=== PATIENT | male | born 1970 | race Hispanic/Latino ===

== ENCOUNTER 2020-12-23 11:00 | Inpatient (IN) | payer BC ==
[~2020-12-23] VITALS: Ht 167.6 cm; Wt 81.6 kg
[2020-12-23 09:41] LABS: BASOPHILS % (AUTO) 0.5 % (0.0-5.0); EOSINOPHILS % (AUTO) 1.4 % (0.0-8.0); HEMATOCRIT 45.3 % (42-54); LYMPHOCYTES % (AUTO) 38.8 % (21.0-51.0); MEAN CORPUSCULAR HEMOGLOBIN 31.6 pg (27.0-33.0); MEAN CORPUSCULAR HGB CONC 34.2 g/dL (32.0-36.0); MEAN CORPUSCULAR VOLUME 92.3 fL (79-99); MONOCYTES % (AUTO) 13.3 % (3.0-13.0); NEUTROPHILS % (AUTO) 45.7 % (40.0-77.0); PLATELET COUNT (AUTO) 170 K/uL (130-400); RED BLOOD CELL COUNT(AUTO) 4.91 MIL/uL (4.50-6.20); RED CELL DISTRIBUTION WIDTH 13.2 % (11.0-15.5); WHITE BLOOD COUNT (AUTO) 6.5 K/uL (4.8-10.8)
[2020-12-23 09:45] LABS: APPEARANCE,URINE Clear (CLEAR); BILIRUBIN,URINE Negative (NEGATIVE); COLOR,URINE Yellow (YELLOW); GLUCOSE, URINE (UA) Negative (NEGATIVE); KETONES,URINE Negative (NEGATIVE); LEUKOCYTE ESTERASE ,URINE Negative (NEGATIVE); NITRATE,URINE Negative (NEGATIVE); OCCULT BLOOD,URINE Negative (NEGATIVE); PH,URINE 6.5 (5.0-8.0); PROTEIN,URINE Negative (NEGATIVE)
[2020-12-23 09:52] LABS: PROTHROMBIN TIME 10.9 SEC (9.6-11.6)
[2020-12-23 09:59] LABS: CREATININE 1.1 mg/dL (0.5-1.5); POTASSIUM 4.2 mmol/L (3.5-5.1)
[2020-12-24 13:19] VITALS: BP 164/91
[2020-12-24] MEDS ORDERED: SIMV10TA97 PO (13:32)
[2020-12-24] MEDS ORDERED: IBUP-2077 PO (13:33)
[2020-12-27] VITALS (25 sets, daily range): BP systolic 101–171; BP diastolic 63–97
[2020-12-27] MEDS: CEFAZOLIN SODIUM 1 GM VIAL IVP ONE ×2 (09:41→13:50)
[2020-12-27] MEDS: CEFAZOLIN SODIUM 1 GM VIAL ONE ×2 (09:41→15:20)
[2020-12-27] MEDS ORDERED: DEXAMETHASONE SOD PHOSPHATE 10MG/ML 1ML VIAL ONE (11:17)
[2020-12-27] MEDS ORDERED: SUCCINYLCHOLINE CHLORIDE 20 MG/ML 10 ML VIAL ONE (11:17)
[2020-12-27] MEDS ORDERED: LIDOCAINE PF 2% 5ML ABBOJECT ONE (11:17)
[2020-12-27] MEDS ORDERED: PROPOFOL 10 MG/ML 20ML VIAL IV ONE (11:18)
[2020-12-27] MEDS ORDERED: ROCURONIUM 10MG/1ML SYR 10 MG/ML ML ONE ×2 (11:18→14:20)
[2020-12-27] MEDS ORDERED: NEOSTIGMINE 5MG/5ML SYR IV ONE (11:18)
[2020-12-27] MEDS ORDERED: ONDANSETRON HCL 4 MG/2 ML VIAL ONE (11:18)
[2020-12-27] MEDS ORDERED: MIDAZOLAM HCL 1 MG/ML 2ML VIAL ONE (11:18)
[2020-12-27] MEDS ORDERED: GLYCOPYRROLATE 1 MG/5 ML SYRINGE ONE (11:18)
[2020-12-27] MEDS ORDERED: FENTANYL CITRATE PF 50 MCG/1 ML 2ML VIAL ONE ×3 (11:18→15:01)
[2020-12-27] MEDS ORDERED: ALBUMIN (HUMAN) 5% 250 ML IV ONE (11:48)
[2020-12-27] MEDS ORDERED: CEFAZOLIN SODIUM 1 GM VIAL ONE (12:33)
[2020-12-27] MEDS ORDERED: TRANEXAMIC ACID 1000MG/10ML ONE ×2 (12:33→17:05)
[2020-12-27] MEDS ORDERED: LIDOCAINE HCL-MPF 1% 2ML VIAL IV PRN (16:45)
[2020-12-27] MEDS ORDERED: POTASSIUM CHLORIDE 10% ELIXIR 20 MEQ/15 ML UDCUP PO PRN (16:45)
[2020-12-27] MEDS ORDERED: TEMAZEPAM 15 MG CAPSULE PO PRN (16:45)
[2020-12-27] MEDS: SODIUM CHLORIDE 0.9% 1000ML 1,000 ML IV SCH (16:45)
[2020-12-27] MEDS ORDERED: ONDANSETRON HCL 4 MG/2 ML VIAL IVP PRN (16:45)
[2020-12-27] MEDS ORDERED: CALCIUM CARBONATE 500 MG TABLET PO PRN (16:45)
[2020-12-27] MEDS ORDERED: TRAMADOL HCL 50 MG TABLET PO PRN (16:45)
[2020-12-27] MEDS ORDERED: FERROUS FUMARATE 324 MG TABLET PO PRN (16:45)
[2020-12-27] MEDS ORDERED: DiphenhydrAMINE HCL 50 MG/ML VIAL IVP PRN (16:45)
[2020-12-27] MEDS: ACETAMINOPHEN EXTRA STRENGTH 500 MG TABLET PO SCH ×2 (16:45→23:36)
[2020-12-27] MEDS ORDERED: POTASSIUM CHLORIDE 20 MEQ ERTAB PO PRN (16:45)
[2020-12-27] MEDS ORDERED: POTASSIUM CHLORIDE 20MEQ/100ML 100 ML IV PRN (16:45)
[2020-12-27] MEDS ORDERED: MEPERIDINE-PF 25 MG/ML SYG ONE ×2 (17:05→17:19)
[2020-12-27] MEDS ORDERED: LABETALOL HCL 5 MG/ML 20ML VIAL IV ONE (17:31)
[2020-12-27] MEDS: CELECOXIB 200 MG CAP PO SCH (19:57)
[2020-12-27] MEDS: FAMOTIDINE 20MG TAB 20 MG TAB PO SCH (19:57)
[2020-12-27] MEDS: PREGABALIN 25 MG CAP PO SCH (19:57)
[2020-12-27] MEDS: SIMVASTATIN 10 MG TABLET PO SCH (19:57)
[2020-12-27] MEDS: ASPIRIN 81MG TAB.CHEW PO SCH (19:58)
[2020-12-27] MEDS: OXYCODONE HCL 5 MG TAB PO PRN (19:59)
[2020-12-27] MEDS: CEFAZOLIN SODIUM 1 GM VIAL IVP SCH (23:35)
[2020-12-28 04:13] VITALS: BP 113/73
[2020-12-28 04:18] LABS: HEMATOCRIT 36.2 % (42-54); MEAN CORPUSCULAR HGB CONC 34.3 g/dL (32.0-36.0); MEAN CORPUSCULAR VOLUME 90.5 fL (79-99); RED CELL DISTRIBUTION WIDTH 13.2 % (11.0-15.5); WHITE BLOOD COUNT (AUTO) 13.5 K/uL (4.8-10.8)
[2020-12-28 04:35] LABS: CREATININE 1.4 mg/dL (0.5-1.5); POTASSIUM 4.2 mmol/L (3.5-5.1)
[2020-12-28] MEDS: SODIUM CHLORIDE 0.9% 1000ML 1,000 ML IV SCH ×2 (05:57→12:38)
[2020-12-28] MEDS: CEFAZOLIN SODIUM 1 GM VIAL IVP SCH (05:58)
[2020-12-28] MEDS: KETOROLAC TROMETHAMINE 15MG/ML IV PRN ×2 (06:13→12:37)
[2020-12-28] MEDS: TAMSULOSIN HCL 0.4 MG CAP.ER.24H PO SCH (09:40)
[2020-12-28] MEDS: PREGABALIN 25 MG CAP PO SCH ×2 (09:40→21:00)
[2020-12-28] MEDS: ASPIRIN 81MG TAB.CHEW PO SCH ×2 (09:40→21:00)
[2020-12-28] MEDS: POLYETHYLENE GLYCOL 3350 17 GM POWD.PACK PO SCH (09:40)
[2020-12-28] MEDS: CELECOXIB 200 MG CAP PO SCH ×2 (09:41→21:00)
[2020-12-28] MEDS: FAMOTIDINE 20MG TAB 20 MG TAB PO SCH ×2 (09:41→21:00)
[2020-12-28] MEDS: ACETAMINOPHEN EXTRA STRENGTH 500 MG TABLET PO SCH ×2 (09:41→16:57)
[2020-12-28 11:42] VITALS: BP 125/82
[2020-12-28] MEDS: OXYCODONE HCL 5 MG TAB PO PRN ×2 (12:47→17:11)
[2020-12-28 17:12] VITALS: BP 113/72
[2020-12-28 20:04] VITALS: BP 112/78
[2020-12-28] MEDS: SIMVASTATIN 10 MG TABLET PO SCH (21:00)
[2020-12-28 23:30] VITALS: BP 112/77
[2020-12-29] MEDS: ACETAMINOPHEN EXTRA STRENGTH 500 MG TABLET PO SCH ×3 (00:45→17:17)
[2020-12-29 03:50] VITALS: BP 111/81
[2020-12-29 08:00] VITALS: BP 141/90
[2020-12-29] MEDS: CELECOXIB 200 MG CAP PO SCH (08:19)
[2020-12-29] MEDS: PREGABALIN 25 MG CAP PO SCH (08:19)
[2020-12-29] MEDS: POLYETHYLENE GLYCOL 3350 17 GM POWD.PACK PO SCH (08:19)
[2020-12-29] MEDS: OXYCODONE HCL 5 MG TAB PO PRN ×3 (08:19→17:18)
[2020-12-29] MEDS: ASPIRIN 81MG TAB.CHEW PO SCH (08:20)
[2020-12-29] MEDS: TAMSULOSIN HCL 0.4 MG CAP.ER.24H PO SCH (08:20)
[2020-12-29] MEDS: FAMOTIDINE 20MG TAB 20 MG TAB PO SCH (08:20)
[2020-12-29 12:00] VITALS: BP 116/75
[2020-12-29 16:00] VITALS: BP 126/81
[2020-12-29] MEDS ORDERED: ASPI-1005 PO (18:49)
[2020-12-29] MEDS ORDERED: HYDR-4060 PO (18:49)
[2020-12-30] MEDS ORDERED: BISACODYL 10 MG SUPP.RECT RC PRN (16:45)
== END 2020-12-29 20:05 | disposition home health service (06) | DRG 470 ==
LOC: DAHIP 12-27 07:02 → 4AH 12-27 17:41
PROVIDERS: ADMIT Orthopaedic Surgery; ATTEND Orthopaedic Surgery
PROC: 0SRB0JZ Replacement of Left Hip Joint with Synthetic Substitute, Open Approach (ICD-10-PCS; principal; 2020-12-27 13:25)
PROC: 3E0T3BZ Introduction of Anesthetic Agent into Peripheral Nerves and Plexi, Percutaneous Approach (ICD-10-PCS; 2020-12-27 13:25)
DX: M87.9 Osteonecrosis, unspecified (principal); G89.29 Other chronic pain; D64.9 Anemia, unspecified; Z20.822 Contact with and (suspected) exposure to COVID-19; Z88.8 Allergy status to other drugs, medicaments and biological substances; M19.90 Unspecified osteoarthritis, unspecified site
CPT/HCPCS: 36415; 73503; 80048; 81003; 85025; 85027; 85610; 87088; 87641; 97039; C1776; G0378; J0330; J0690; J1100; J1200; J1885; J2001; J2175; J2250; J2405; J2704; J2710; J3010; J3490; J7120; P9045; U0003

== ENCOUNTER 2022-02-27 14:00 | Inpatient (IN) | payer BC ==
[~2022-02-27] VITALS: Ht 175.3 cm; Wt 86.1 kg
[2022-02-27 10:00] VITALS: BP_SYST 155; BP_SYST 184; BP_DIAS 107; BP_DIAS 97
[2022-02-27 10:07] LABS: BASOPHILS % (AUTO) 0.5 % (0.0-5.0); EOSINOPHILS % (AUTO) 0.6 % (0.0-8.0); HEMATOCRIT 46.9 % (42-54); LYMPHOCYTES % (AUTO) 35.8 % (21.0-51.0); MEAN CORPUSCULAR HEMOGLOBIN 31.3 pg (27.0-33.0); MEAN CORPUSCULAR HGB CONC 34.8 g/dL (32.0-36.0); MEAN CORPUSCULAR VOLUME 90.2 fL (79-99); MONOCYTES % (AUTO) 13.7 % (3.0-13.0); NEUTROPHILS % (AUTO) 49.1 % (40.0-77.0); PLATELET COUNT (AUTO) 194 K/uL (130-400); RED CELL DISTRIBUTION WIDTH 13.7 % (11.0-15.5); WHITE BLOOD COUNT (AUTO) 8.8 K/uL (4.8-10.8)
[2022-02-27 10:20] LABS: CREATININE 1.1 mg/dL (0.5-1.5); POTASSIUM 4.3 mmol/L (3.5-5.1)
[2022-02-27 10:26] LABS: INR 0.93 (0.85-1.15); PROTHROMBIN TIME 10.2 SEC (9.6-11.6)
[2022-02-27 10:31] LABS: APPEARANCE,URINE Clear (CLEAR); BILIRUBIN,URINE Negative (NEGATIVE); COLOR,URINE Yellow (YELLOW); GLUCOSE, URINE (UA) Negative (NEGATIVE); KETONES,URINE Negative (NEGATIVE); LEUKOCYTE ESTERASE ,URINE Negative (NEGATIVE); NITRATE,URINE Negative (NEGATIVE); OCCULT BLOOD,URINE Negative (NEGATIVE); PROTEIN,URINE Trace mg/dL (NEGATIVE); UROBILINOGEN,URINE 0.2 mg/dL (0.2-1.0)
[2022-02-27 10:39] LABS: BACTERIA,URINE Rare /HPF (None Seen); RBC,URINE 0-1 /HPF (0-1); SQUAMOUS EPITHELIAL CELL,UR Rare /HPF (0-2); WBC,URINE 0-1 /HPF (0-1)
[~2022-02-27 14:00] MED LIST: SIMV10TA97 PO
[2022-03-01] VITALS (23 sets, daily range): BP systolic 116–154; BP diastolic 81–103
[2022-03-01] MEDS ORDERED: CEFAZOLIN SODIUM 1 GM VIAL IVP SCH (05:00)
[2022-03-01] MEDS ORDERED: LACTATED RINGERS 1000ML 1,000 ML IV ONE (12:48)
[2022-03-01] MEDS ORDERED: CEFAZOLIN SODIUM 2 GM VIAL IV ONE ×2 (15:20)
[2022-03-01] MEDS ORDERED: PROPOFOL 10 MG/ML 20ML VIAL IV ONE (15:29)
[2022-03-01] MEDS ORDERED: SUCCINYLCHOLINE CHLORIDE 20 MG/ML 10 ML VIAL ONE (15:29)
[2022-03-01] MEDS ORDERED: ROCURONIUM 10MG/1ML SYR 10 MG/ML ML ONE ×2 (15:30→17:16)
[2022-03-01] MEDS ORDERED: MIDAZOLAM HCL 1 MG/ML 2ML VIAL ONE (15:30)
[2022-03-01] MEDS ORDERED: FENTANYL CITRATE PF 50 MCG/1 ML 2ML VIAL ONE (15:30)
[2022-03-01] MEDS ORDERED: CEFAZOLIN SODIUM 1 GM VIAL ONE (15:32)
[2022-03-01] MEDS ORDERED: TRANEXAMIC ACID 1000MG/10ML ONE ×2 (15:32→20:48)
[2022-03-01] MEDS ORDERED: ROPIVACAINE 0.5% 5MG/ML 30ML IJ ONE (15:42)
[2022-03-01] MEDS ORDERED: DEXAMETHASONE SOD PHOSPHATE 10MG/ML 1ML VIAL ONE (15:44)
[2022-03-01] MEDS ORDERED: PHENYLEPHRINE HCL 10 MG/ML 1ML VIAL IV ONE (16:09)
[2022-03-01] MEDS ORDERED: EPHEDRINE SULFATE 50 MG/ML AMPULE ONE (16:40)
[2022-03-01] MEDS ORDERED: KCL 20 MEQ ERTAB PO PRN (18:30)
[2022-03-01] MEDS: ACETAMINOPHEN 500 MG TABLET PO SCH (18:30)
[2022-03-01] MEDS ORDERED: KETOROLAC 15MG/ML VIAL (15MG/ML) IV PRN (18:30)
[2022-03-01] MEDS ORDERED: LIDOCAINE HCL-MPF 1% 2ML VIAL IV PRN (18:30)
[2022-03-01] MEDS ORDERED: ONDANSETRON 4MG INJ IVP PRN (18:30)
[2022-03-01] MEDS ORDERED: OXYCODONE HCL 5 MG TAB PO PRN (18:30)
[2022-03-01] MEDS: 0.9%NACL 1000ML 1,000 ML IV SCH (18:30)
[2022-03-01] MEDS ORDERED: TRAMADOL HCL 50 MG TABLET PO PRN (18:30)
[2022-03-01] MEDS ORDERED: FERROUS FUMARATE 324 MG TABLET PO PRN (18:30)
[2022-03-01] MEDS ORDERED: DiphenhydrAMINE HCL 50 MG/ML VIAL IVP PRN (18:30)
[2022-03-01] MEDS ORDERED: CALCIUM CARB 500MG PO PRN (18:30)
[2022-03-01] MEDS ORDERED: POTASSIUM CHLORIDE 10% ELIXIR 20 MEQ/15 ML UDCUP PO PRN (18:30)
[2022-03-01] MEDS ORDERED: POTASSIUM CHLORIDE 20MEQ/100ML 100 ML IV PRN (18:30)
[2022-03-01] MEDS ORDERED: GLYCOPYRROLATE 1 MG/5 ML SYRINGE ONE (19:07)
[2022-03-01] MEDS ORDERED: NEOSTIGMINE 5MG/5ML SYR IV ONE (19:08)
[2022-03-01] MEDS ORDERED: ESMOLOL HCL 10 MG/ML 10 ML VIAL ONE (19:13)
[2022-03-01] MEDS ORDERED: KETOROLAC 30MG VIAL (30MG/ML) ONE (19:39)
[2022-03-01] MEDS ORDERED: MEPERIDINE-PF 25 MG/ML SYG ONE ×2 (19:39→20:03)
[2022-03-01] MEDS ORDERED: LABETALOL 20MG SYG IV ONE (20:12)
[2022-03-01] MEDS ORDERED: LABETALOL 20MG VIAL IV PRN (21:00)
[2022-03-01] MEDS ORDERED: LABETALOL 20MG SYG IV PRN (21:00)
[2022-03-01] MEDS ORDERED: LISINOPRIL 10 MG TABLET ONE (21:40)
[2022-03-01] MEDS: FAMOTIDINE 20MG TAB PO SCH (21:43)
[2022-03-01] MEDS: ASPIRIN 81 MG EC TAB PO SCH (21:44)
[2022-03-01] MEDS: CELECOXIB 200 MG CAP PO SCH (21:44)
[2022-03-01] MEDS: PREGABALIN 25 MG CAP PO SCH (21:45)
[2022-03-01] MEDS: OXYCODONE HCL 5 MG TAB PO PRN (21:47)
[2022-03-01] MEDS: CEFAZOLIN SODIUM 1 GM VIAL IVP SCH (23:30)
[2022-03-02] VITALS (9 sets, daily range): BP systolic 106–124; BP diastolic 63–81
[2022-03-02] MEDS: ACETAMINOPHEN 500 MG TABLET PO SCH ×3 (03:01→20:31)
[2022-03-02] MEDS: 0.9%NACL 1000ML 1,000 ML IV SCH ×2 (04:30→14:30)
[2022-03-02 06:02] LABS: HEMATOCRIT 38.7 % (42-54); MEAN CORPUSCULAR HEMOGLOBIN 31.7 pg (27.0-33.0); MEAN CORPUSCULAR HGB CONC 34.9 g/dL (32.0-36.0); MEAN CORPUSCULAR VOLUME 90.8 fL (79-99); RED BLOOD CELL COUNT(AUTO) 4.26 MIL/uL (4.50-6.20); RED CELL DISTRIBUTION WIDTH 13.5 % (11.0-15.5); WHITE BLOOD COUNT (AUTO) 13.8 K/uL (4.8-10.8)
[2022-03-02 06:25] LABS: CREATININE 1.3 mg/dL (0.5-1.5); POTASSIUM 4.2 mmol/L (3.5-5.1)
[2022-03-02] MEDS: CEFAZOLIN SODIUM 1 GM VIAL IVP SCH (06:38)
[2022-03-02] MEDS: POLYETHYLENE GLYCOL 3350 17 GM POWD.PACK PO SCH (08:13)
[2022-03-02] MEDS: FAMOTIDINE 20MG TAB PO SCH ×2 (08:13→20:30)
[2022-03-02] MEDS: CELECOXIB 200 MG CAP PO SCH ×2 (08:14→20:30)
[2022-03-02] MEDS: PREGABALIN 25 MG CAP PO SCH ×2 (08:14→20:30)
[2022-03-02] MEDS: OXYCODONE HCL 5 MG TAB PO PRN (08:14)
[2022-03-02] MEDS: ASPIRIN 81 MG EC TAB PO SCH ×2 (08:14→20:30)
[2022-03-02] MEDS: LISINOPRIL 10 MG TABLET PO SCH (08:15)
[2022-03-02] MEDS: TAMSULOSIN HCL 0.4 MG CAP.ER.24H PO SCH (08:21)
[2022-03-02] MEDS ORDERED: SIMVASTATIN 10 MG TABLET PO SCH (21:00)
[2022-03-03 04:37] VITALS: BP 130/70
[2022-03-03] MEDS: ACETAMINOPHEN 500 MG TABLET PO SCH (05:19)
[2022-03-03] MEDS: PREGABALIN 25 MG CAP PO SCH (07:46)
[2022-03-03] MEDS: OXYCODONE HCL 5 MG TAB PO PRN (07:46)
[2022-03-03] MEDS: POLYETHYLENE GLYCOL 3350 17 GM POWD.PACK PO SCH (07:46)
[2022-03-03] MEDS: ASPIRIN 81 MG EC TAB PO SCH (07:46)
[2022-03-03] MEDS: FAMOTIDINE 20MG TAB PO SCH (07:46)
[2022-03-03] MEDS: CELECOXIB 200 MG CAP PO SCH (07:47)
[2022-03-03] MEDS: TAMSULOSIN HCL 0.4 MG CAP.ER.24H PO SCH (07:47)
[2022-03-03 08:00] VITALS: BP 113/72
[2022-03-03] MEDS: LISINOPRIL 10 MG TABLET PO SCH (09:00)
[2022-03-03 11:45] VITALS: BP 131/72
[2022-03-03] MEDS ORDERED: HYDR-4060 PO (14:22)
[2022-03-03] MEDS ORDERED: MELO-106 PO (14:22)
[2022-03-03] MEDS ORDERED: AEC81 PO (14:22)
[2022-03-04] MEDS ORDERED: BISACODYL 10 MG SUPP.RECT RC PRN (18:30)
== END 2022-03-03 17:47 | disposition home health service (06) | DRG 470 ==
LOC: DAHIP 03-01 11:17 → 4BH 03-01 20:06
PROVIDERS: ADMIT Orthopaedic Surgery; ATTEND Orthopaedic Surgery
PROC: 3E0T3BZ Introduction of Anesthetic Agent into Peripheral Nerves and Plexi, Percutaneous Approach (ICD-10-PCS; 2022-03-01)
PROC: 0SR90JZ Replacement of Right Hip Joint with Synthetic Substitute, Open Approach (ICD-10-PCS; principal; 2022-03-01 16:54)
DX: M87.851 Other osteonecrosis, right femur (principal); E78.5 Hyperlipidemia, unspecified; I10 Essential (primary) hypertension; E78.00 Pure hypercholesterolemia, unspecified; D64.9 Anemia, unspecified; Z83.3 Family history of diabetes mellitus; Z82.49 Family history of ischemic heart disease and other diseases of the circulatory system; M16.11 Unilateral primary osteoarthritis, right hip
CPT/HCPCS: 36415; 73503; 80048; 81001; 85025; 85027; 85610; 87088; 87426; 87641; 97039; C1776; G0378; J0330; J0690; J1100; J1200; J1885; J2175; J2250; J2370; J2405; J2704; J2710; J2795; J3010; J3490; J7120